=== PATIENT | female | born 1960 | race Caucasian/White ===

== ENCOUNTER 2022-06-11 09:53 | Emergency (ER) | payer BC, SELFPAY ==
[2022-06-11 10:06] VITALS: BP 102/49; PULSE 67; RESP 20; TEMP 36.3; O2SAT 95; BMI 27.5
--- NOTE | 2022-06-11 10:48 | CRLHL7_ITS ---
For Patients: As a result of the Century Cures Act, medical imaging exams and procedure reports are released immediately into your electronic medical record. You may view this report before your referring provider. If you have questions, please contact your health care provider. Indication: Pain and swelling. Technique: Grayscale, grayscale compression, color Doppler, spectral Doppler and augmentation technique was utilized for evaluation of the right lower extremity deep venous system. Comparison: None Findings: The left common femoral vein appears normal. A duplicated system is noted which is considered normal variation. Nonocclusive thrombus is identified in the common femoral vein and the popliteal vein on the right. There is associated dampened augmentation. The remainder of the right lower extremity deep venous system is normal. Imaging features suggest that this clot is likely chronic. However, acute on chronic clot cannot be entirely excluded especially if there are new or worsening symptoms. I discussed this case with Dr. Jorge at 12:25 p.m. on June 11, 2022 Impression: Nonocclusive thrombus involving the right common femoral vein in the right popliteal vein as described. Dictated by Shailesh Smith MD @ 06/11/2022 12:29:38 PM (Electronically Signed)
--- NOTE | 2022-06-11 11:35 | ED.LOWEXIN ---
HPI - Extremity Injury (Lower) General Date Seen: 06/11/22 Chief Complaint: Extremity Pain/Injury, Lower Stated Complaint: groin pain Time Seen by Provider: 06/11/22 09:59 Source: patient Mode of arrival: ambulatory Limitations: no limitations History of Present Illness HPI Narrative: Patient is a 62-year-old female who presents here with right groin and right upper leg pain and tenderness. This occurred today. When she woke up she lifted her leg in notices tender. And somewhat sore. She does remember injuring it at all, but is concerned as she has had a previous DVT in this leg. She is not currently on any anticoagulants. She called the clinic, and they recommended that she come in and be seen. She denies any numbness tingling or weakness associated with this any back pain, or hip pain. She did not take any medications to help this. She does not have any overt swelling, his non contraceptives and is a nonsmoker. No history of chest pain shortness of breath syncope or presyncope palpitations. Related Data Previous Rx's Medication Instructions Recorded rivaroxaban 15 mg tablet (Xarelto) 15 mg PO BID #42 tabs 06/11/22 Allergies Allergy/AdvReac Type Severity Reaction Status Date / Time No Known Drug Allergies Allergy Verified 06/11/22 10:06 Review of Systems Status of ROS: Reports: 10 or more systems reviewed and unremarkable except as noted in History and below PFSH PFS Social History Smoking Status: Never smoker Do you use any of these nicotine containing products: None Second hand tobacco smoke exposure: No How often do you have a drink containing alcohol: monthly or less How many standard drinks containing alcohol do you have on a typical day: 1 or 2 How often do you have six or more drinks on one occasion: Never AUDIT-C Alcohol total score: 1 Non-prescribed substance use: denies use service: No Exam Narrative: Exam Narrative: Patient is seen and assessed she appears to be in no apparent distress with normal vital signs and talking to me normally. Her pupils are equal round reactive to light there is no scleral icterus redness TMs normal oropharynx normal neck is supple chest is clear with easy respirations no extra sounds, heart sounds no clicks murmurs or gallops her abdomen is soft there is no guarding no past splenomegaly and no evidence of a transmissible hernia in the right lower quadrant. She has no pain on palpation there also. She is able the flex her right hip through full range of motion of flexion extension abduction on the right side does cause a little bit of discomfort, there is no obvious swelling notable, or discrepancy inside right versus left of her upper lower legs. She does not have any edema, normal pulses, neurologically she has normal power in upper lower extremities both proximally and distally, with normal sensation. Skin reveals no petechiae or rashes. Const: Vital Signs, click to edit/add: Vital Signs - 24 hr 06/11/22 10:06 06/11/22 11:53 Temperature 97.4 F L Pulse Rate [Pulse Oximeter] 67 65 Respiratory Rate 20 18 Blood Pressure [Le ft Upper Arm] 102/49 L 112/50 L Pulse Oximetry 95 97 Oxygen Delivery Me thod Room Air Room Air Course Vital Signs Vital signs: Initial Vital Signs Temperature 97.4 F L 06/11/22 10:06 Temperature Source Temporal Artery Scan 06/11/22 10:06 Pulse Rate 67 06/11/22 10:06 Pulse Rhythm 06/11/22 10:06 Respiratory Rate 20 06/11/22 10:06 Blood Pressure 102/49 L 06/11/22 10:06 Blood Pressure Mean 66 06/11/22 10:06 Blood Pressure Position Supine 06/11/22 10:06 Pulse Oximetry 95 06/11/22 10:06 Oxygen Delivery Method 06/11/22 10:06 Vital Signs Temperature 97.4 F L 06/11/22 10:06 Pulse Rate 67 06/11/22 10:06 Respiratory Rate 20 06/11/22 10:06 Blood Pressure 102/49 L 06/11/22 10:06 Pulse Oximetry 95 06/11/22 10:06 Oxygen Delivery Method 06/11/22 10:06 Temperature 97.4 F L 06/11/22 10:06 Pulse Rate 65 06/11/22 11:53 Respiratory Rate 18 06/11/22 11:53 Blood Pressure 112/50 L 06/11/22 11:53 Pulse Oximetry 97 06/11/22 11:53 Oxygen Delivery Method 06/11/22 11:53 MDM - Extremity Injury (Lower) MDM Narrative Medical decision making narrative: Patient is seen and assessed given the history and examination I think doing a ultrasound to rule out DVT would be appropriate, I also think that there is possibility this is muscular component, most likely of the adductors, causing the issue. I am not getting a feel that this is related to hernia, or radiculopathy. She also does not have an ischemic leg given the normal pulses and normal otherwise sensation and cap refill. I doubt whether this is a fracture given the history of no trauma in the setting of no cancer. I think we can proceed with the ultrasound at this point. Medical Records Attestation: I reviewed the patient's medical records. Lab Data Attestation: I reviewed the patient's lab results. Imaging Data Venous ultrasound: My impression: Nonocclusive venous thromboembolism Radiologist's impression: Patient: TRISTON KONG Facility:?[facility] Patient ID:?[id number] Site Patient ID:?[id number]. Site :?[id number] Study:?US Extremity Right -06/11/2022 11:59:57 AM Ordering Physician:Roxanne Glass Final Report: Indication: Pain and swelling. Technique: Grayscale, grayscale compression, color Doppler, spectral Doppler and augmentation technique was utilized for evaluation of the right lower extremity deep venous system. Comparison: None Findings: The left common femoral vein appears normal. A duplicated system is noted which is considered normal variation. Nonocclusive thrombus is identified in the common femoral vein and the popliteal vein on the right. There is associated dampened augmentation. The remainder of the right lower extremity deep venous system is normal. Imaging features suggest that this clot is likely chronic. However, acute on chronic clot cannot be entirely excluded especially if there are new or worsening symptoms. I discussed this case with Dr. Jorge at 12:25 p.m. on June 11, 2022 Impression: Nonocclusive thrombus involving the right common femoral vein in the right popliteal vein as described. Dictated by Shailesh Smith MD @ 06/11/2022 12:29:38 PM (Electronic Signature) Discharge Plan Discharge Clinical Impression: Deep venous thrombosis Qualifiers: DVT location: lower extremity Affected thrombotic vein of extremity: femoral Chronicity: unspecified Laterality: right Qualified Code(s): I82.411 - Acute embolism and thrombosis of right femoral vein Patient Disposition: Home, Self-Care Condition: Stable Instructions: Deep Vein Thrombosis (ED), Blood Thinners (ED) Additional Instructions: Home rest take your Xarelto 15 mg twice daily for 21 days, then increase to 20 mg once daily. Follow-up with her primary care physician within the next 2-3 weeks, to discuss further workup for this. And question whether not of repeat ultrasound would be helpful. It might be also helpful to see a vascular surgeon, for these questions. Return here if increasing pain, swelling, chest pain shortness of breath or passing oot. Prescriptions: New Xarelto 15 mg tablet 15 mg PO BID Qty: 42 0RF Rx Instructions: must administer with evening meal, patient will need to see primary care physician within the next 3 weeks to get the once a day prescription Follow Up/Referrals: Nadya Sanchez MD [Primary Care Provider] - Stand Alone Forms: [employer] Info Instructions
[2022-06-11 11:53] VITALS: BP 112/50; PULSE 65; RESP 18; O2SAT 97
[2022-06-11] MEDS: RIVAROXABAN 10 MG TABLET 15 MG PO (12:58)
== END 2022-06-11 13:00 | disposition home or self-care (01) ==
PROVIDERS: Emergency Provider Family Medicine; PCP Family Medicine
DX: I82.401 Acute embolism and thrombosis of unspecified deep veins of right lower extremity (principal)
CPT/HCPCS: 93971; 99283; 99284; A9270

== ENCOUNTER 2023-01-05 09:00 | Outpatient (RCR) | payer BC, MEDICARE, SELFPAY | END 2023-01-05 10:15 | disposition home or self-care (01) | PROVIDERS: PCP Family Medicine; Visit Provider Family Medicine | DX: M25.562 Pain in left knee (principal); M25.561 Pain in right knee; M17.2 Bilateral post-traumatic osteoarthritis of knee; G89.29 Other chronic pain; M71.21 Synovial cyst of popliteal space [Baker], right knee; I82.90 Acute embolism and thrombosis of unspecified vein; Z51.89 Encounter for other specified aftercare | CPT/HCPCS: 97110; 97140; 97162; 97163; 97530 ==